=== PATIENT | male | born 1990 | race African-American/Black ===

== ENCOUNTER 2020-03-05 22:25 | Emergency (ER) | payer SELFPAY ==
[2015-11-09 12:00] VITALS: BP 134/81
[~2020-03-05] VITALS: Ht 177.8 cm; Wt 81.8 kg
--- NOTE | 2020-03-05 22:39 | PHYS DOC ---
Past Medical History Past Medical History: No Pertinent History Past Surgical History: No Surgical History Smoking Status: Current Every Day Smoker Alcohol Use: Occasionally Drug Use: Marijuana General Adult EDM: Chief Complaint: PAIN ON URINATION HPI: HPI: 30 year old male presents with the chief complaint of urinary discomfort. States has some drainage. Review of Systems: Review of Systems: Review of systems: Constitutional symptoms- No fever, no chills. Eyes- No Discharge, No Visual Loss Respiratory symptoms- No shortness of breath, No wheezing, No Dyspnea on Exertion Cardiovascular Systems; No chest pain, No Palpitations, No syncope Gastrointestinal symptoms: NO abdominal pain, no nausea, no vomiting or diarrhea. Genitourinary symptoms: Positive dysuria. Musculoskeletal symptoms: No back pain No extremity pain. NEUROLOGICAL Symptoms: No headache, no generalized weakness; No focal Weakness Heart Score: Risk Factors: Risk Factors: DM, Current or recent (<one month) smoker, HTN, HLP, family history of CAD, obesity. Risk Scores: Score 0 - 3: 2.5% MACE over next 6 weeks - Discharge Home Score 4 - 6: 20.3% MACE over next 6 weeks - Admit for Clinical Observation Score 7 - 10: 72.7% MACE over next 6 weeks - Early Invasive Strategies Allergies: Allergies: Allergies Coded Allergies Type Severity Reaction Last Updated Verified No Known Drug Allergies 05/12/14 No Physical Exam: PE: General: alert, no acute distress. Skin: warm, dry and intact. Head:: Normocephalic, atraumatic. Neck: Trachea midline. Eyes: EOMI, Normal conjunctiva, No drainage CARDIOVASCULAR: Regular rate and rhythm RESPIRATORY: No respiratory distress Back: Full range of motion. MUSCULOSKELETAL: Full range of motion of bilateral upper and lower extremities. GASTROINTESTINAL: Abdomen soft without rebound or guarding. NEUROLOGICAL: Alert and noted to person, place and time. No neurological deficits observed Psychiatric: Cooperative. Normal judgment EKG: EKG: [] Radiology/Procedures: Radiology/Procedures: [] Course & Med Decision Making: Course & Med Decision Making Pertinent Labs and Imaging studies reviewed. (See chart for details) [] Patient with a chief complaint of dysuria. UA G/C obtained. Patient will be discharged home with prescription Suprax and Zithromax. Patient advised to wait to take medications until he has the results. Patient advised to take Suprax and Zithromax if his gonorrhea is positive. Patient advised to take only Zithromax if chlamydia is positive. Inder Disclaimer: Inder Disclaimer: This electronic medical record was generated, in whole or in part, using a voice recognition dictation system. Departure Departure Impression: Primary Impression: Dysuria Disposition: 01 HOME, SELF-CARE Condition: STABLE Referrals: NO PCP (PCP) Patient Instructions: Dysuria Scripts Azithromycin (ZITHROMAX) 250 Mg Tablet 1 PKG PO UD, #4 TAB take 1000mg once Prov: OLIMPIA RAM DO 03/05/20 Cefixime (SUPRAX) 400 Mg Capsule 1 CAP PO ONCE for 1 Day, #1 CAP 0 Refills Prov: OLIMPIA RAM DO 03/05/20 Justicifation of Admission Dx: Justifications for Admission: Justification of Admission Dx: N/A OLIMPIA RAM DO Mar 05, 2020 22:39
[2020-03-05 22:41] LABS: BILIRUBIN,URINE NEGATIVE (NEG); CLARITY,URINE CLOUDY; COLOR,URINE YELLOW; NITRITE,URINE NEGATIVE (NEG); PROTEIN,URINE NEGATIVE (NEG-TRACE)
[2020-03-05 22:49] LABS: BACTERIA,URINE 0 /HPF (0-FEW); WBC,URINE >40 /HPF (0-4)
[2020-03-05] MEDS ORDERED: CEFI400C PO (22:50)
[2020-03-05] MEDS ORDERED: AZIT250T PO (22:50)
== END 2020-03-05 22:52 | disposition home or self-care (01) ==
LOC: ER 22:25
DX: R30.0 Dysuria (principal); R30.9 Painful micturition, unspecified; F17.200 Nicotine dependence, unspecified, uncomplicated; F12.90 Cannabis use, unspecified, uncomplicated
CPT/HCPCS: 81001; 87086; 87491; 87591; 99283

== ENCOUNTER 2020-09-12 13:52 | Emergency (ER) | payer SELFPAY ==
[~2020-09-12] VITALS: Ht 172.7 cm; Wt 80.0 kg
[~2020-09-12 13:52] MED LIST: AZIT250T PO; CEFI400C PO
[2020-09-12 15:41] VITALS: BP 116/75
[2020-09-12 15:48] LABS: BILIRUBIN,URINE NEGATIVE (NEG); CLARITY,URINE CLEAR; COLOR,URINE YELLOW; NITRITE,URINE NEGATIVE (NEG); PROTEIN,URINE NEGATIVE (NEG-TRACE)
[2020-09-12 16:17] LABS: AMORPHOUS SEDIMENT,UR PRESENT /HPF
[2020-09-12 16:18] LABS: BACTERIA,URINE 0 /HPF (0-FEW); RBC,URINE 0 /HPF (0-2); WBC,URINE 0 /HPF (0-4)
--- NOTE | 2020-09-12 16:43 | ED.ADGEN ---
Past Medical History Past Medical History: No Pertinent History Past Surgical History: No Surgical History Smoking Status: Current Every Day Smoker Alcohol Use: Occasionally Drug Use: Marijuana General Adult EDM: Chief Complaint: SEXUALLY TRANSMITTED DISEASE HPI: HPI: Patient is a 30 year old AA male who presents emergency department for STI testing. He reports that one of his sex partners informed him that she tested positive for trichomonas. He denies any dysuria, hematuria, increased urinary frequency, testicular pain, abnormal penile discharge, pelvic pain, abdominal pain, nausea, vomiting, diarrhea, back pain, fever, body aches, fatigue. He currently denies any pain. Review of Systems: Review of Systems: Complete ROS is negative unless otherwise noted in HPI. Allergies: Allergies: Allergies Coded Allergies Type Severity Reaction Last Updated Verified No Known Drug Allergies 05/12/14 No Physical Exam: PE: See Above Constitutional: Well developed, well nourished, no acute distress, non-toxic appearance. [] HENT: Normocephalic, atraumatic, bilateral external ears normal, nose normal. [] Eyes: PERRLA, EOMI, conjunctiva normal, no discharge. [] Neck: Normal range of motion, no stridor. [] Cardiovascular:Heart rate regular rhythm Lungs & Thorax: Respirations even and unlabored, no retractions, no respiratory distress Male : Circumcised, appearance of urethra, no urethral discharge, appearing testicles Skin: Warm, dry, no erythema, no rash. [] Extremities: No cyanosis, ROM intact, no edema. [] Neurologic: Alert and oriented X 3, no focal deficits noted. [] Psychologic: Affect normal, judgement normal, mood normal. [] Current Patient Data: Labs: Laboratory Tests Test 09/12/20 15:40 Urine Collection Type Unknown Urine Color Yellow Urine Clarity Clear Urine pH 7.0 (<5.0-8.0) Urine Specific [place] 1.020 (1.000-1.030) Urine Protein Negative mg/dL (NEG-TRACE) Urine Glucose (UA) Negative mg/dL (NEG) Urine Ketones (Stick) Trace mg/dL (NEG) Urine Blood Negative (NEG) Urine Nitrite Negative (NEG) Urine Bilirubin Negative (NEG) Urine Urobilinogen Dipstick 1.0 mg/dL (0.2 mg/dL) Urine Leukocyte Esterase Negative (NEG) Urine RBC 0 /HPF (0-2) Urine WBC 0 /HPF (0-4) Urine Squamous Epithelial Cells Occ /LPF Urine Amorphous Sediment Present /HPF Urine Bacteria 0 /HPF (0-FEW) Urine Mucus Slight /LPF Vital Signs: Vital Signs Date Time Temp Pulse Resp B/P (MAP) Pulse Ox O2 Delivery O2 Flow Rate FiO2 09/12/20 15:41 98.1 79 116/75 (89) 18 98.1 09/12/20 14:31 18 Room Air EKG: EKG: [] Heart Score: C/O Chest Pain: No Risk Scores: Score 0 - 3: 2.5% MACE over next 6 weeks - Discharge Home Score 4 - 6: 20.3% MACE over next 6 weeks - Admit for Clinical Observation Score 7 - 10: 72.7% MACE over next 6 weeks - Early Invasive Strategies Radiology/Procedures: Radiology/Procedures: [] Course & Med Decision Making: Course & Med Decision Making Pertinent Labs and Imaging studies reviewed. (See chart for details) 30-year-old male presents emergency department for STI testing, UA is unremarkable, there is no presence of trichomonas. There is no bacteria and no white blood cells. Patient declined prophylactic treatment for gonorrhea and chlamydia as he is completely asymptomatic. Advised the patient that his result will take at least 2 days to be back, he will need to return to the ER for treatment if 1 or both of these test is positive. Patient verbalized an understanding of home care, medications, follow-up, and return to ED instructions and was in agreement with the plan of care. [] Dragon Disclaimer: Dragon Disclaimer: This electronic medical record was generated, in whole or in part, using a voice recognition dictation system. Departure Departure Impression: Primary Impression: Person with feared complaint in whom no diagnosis is made Additional Impression: Encounter for assessment of sexually transmitted disease exposure Disposition: 01 DC HOME SELF CARE/HOMELESS Condition: STABLE Referrals: NO PCP (PCP) Patient Instructions: Medical Screening Exam Additional Instructions: Testing today did not reveal any trichomonas in your urine. Test results for gonorrhea and chlamydia are not available at this time and will take 1 to 2 days for those results to be available. If one or both of your tests is positive you will need to return to the ER for further treatment. Otherwise follow-up with your primary care doctor as needed, return to the ER if symptoms worsen or fever develops. Problem Qualifiers BOGUSLAW,BHAKTI D RETREADER Sep 12, 2020 16:43
== END 2020-09-12 17:14 | disposition home or self-care (01) ==
LOC: ER 13:52
DX: Z71.1 Person with feared health complaint in whom no diagnosis is made (principal); F17.200 Nicotine dependence, unspecified, uncomplicated
CPT/HCPCS: 81001; 87491; 87591; 99283